=== PATIENT | female | born 1965 | race Hispanic/Latino ===

== ENCOUNTER 2017-10-18 07:57 | Outpatient (CLI) | payer OTHER ==
--- NOTE | 2017-10-18 16:16 | XRay Report ---
XRAY BILATERAL KNEE THREE VIEWS EACH: 10/18/17 07:57:00 CLINICAL: Bilateral knee pain. FINDINGS: Right: No fracture or dislocation. Mild osteoarthritis of the medial and lateral joints with a normal joint spaces and small osteophytes. Minimal patellofemoral joint osteoarthritis. No joint effusion. Normal soft tissues. Left: No fracture or dislocation. Mild osteoarthritis of the medial and lateral joints with normal joint spaces and small osteophytes. Mild patellofemoral joint osteoarthritis. No joint effusion. Normal soft tissues. IMPRESSION: Mild bilateral osteoarthritis.
== END 2017-10-18 07:58 | disposition home or self-care (01) ==
LOC: SPVIMAG 07:57
PROVIDERS: ATTEND Orthopaedic Surgery Sports Medicine
DX: M17.0 Bilateral primary osteoarthritis of knee (principal)